=== PATIENT | female | born 1935 | race Caucasian/White ===

== ENCOUNTER 2024-08-28 14:38 | Outpatient (CLI) | payer MEDICARE, BC, SELFPAY ==
--- NOTE | ~2024-08-28 | CT_ITS ---
CT brain wo con Ordering provider: Ericka Crocker NP History: 89 years Female with . R41.3 - Other amnesia . Comparison: None. Technique: CT of the head without contrast. Radiation reduction technique utilized.The dose-length product was 681 mGy-cm. FINDINGS: BRAIN PARENCHYMA AND CSF SPACES: Mild leukoaraiosis and diffuse cortical atrophy. Mild atheromatous d isease. No midline shift, mass effect or hemorrhage. The brain parenchyma and CSF spaces are otherwi se normal. Empty sella turcica. VISUALIZED PARANASAL SINUSES: Well aerated. MASTOIDS: Well aerated. BONES: The bones appear intact. SOFT TISSUES: Visualized nasopharynx is normal. Superficial soft tissues are normal. IMPRESSION: No acute intracranial findings. Reviewed, dictated and finalized at location A. RNATIONAL MARKETING MANAGER
== END 2024-08-28 14:39 | disposition home or self-care (01) ==
PROVIDERS: PCP Nurse Practitioner Family; Visit Provider Nurse Practitioner Family
DX: R41.3 Other amnesia (principal)
CPT/HCPCS: 70450

== ENCOUNTER 2025-03-26 08:38 | Outpatient (CLI) | payer MEDICARE, BC, SELFPAY ==
--- NOTE | ~2025-03-26 | US_ITS ---
EXAMINATION: US carotid duplex BI DATE: 03/26/2025 10:18 CDT INDICATION: Other specified symptoms and signs involving the circulatory for a cyst TECHNIQUE: Grayscale, color Doppler, and pulsed Doppler images of the cervical carotid arteries were obtained. The degree of vessel stenosis is placed in one of the following categories: normal, <50%, 50-69%, >=7 0% but less than near-occlusion, near-occlusion, or total occlusion. Note that percent stenosis relative to normal distal artery lumen diameter is indirectly measured fro m velocity measurements as described originally by Torsten, et al. Radiology 2003; 229:340-346 and upda stanislaw by Mason Lopez et al STROKE 2012;43(3);915-921. COMPARISON: None. FINDINGS: There is mild atherosclerosis of both carotid arteries. Peak systolic velocity (in cm/s) is detailed below RIGHT: Right common carotid artery (CCA): 57 cm/s. Right internal carotid artery (ICA) PSV: 88 cm/s. Right ICA end-diastolic velocity (EDV): 17 cm/s. Right ICA/CCA PSV ratio is 1.5. Right external carotid artery (ECA): 99cm/s. There is antegrade flow in the right vertebral artery LEFT: Left common carotid artery (CCA): 85 cm/s. Left internal carotid artery (ICA) PSV: 106 cm/s. Left ICA end-diastolic velocity (EDV): 22 cm/s. Left ICA/CCA PSV ratio is 1.3. Left external carotid artery (ECA): 106cm/s. There is antegrade flow in the left vertebral artery. IMPRESSION: 1. Less than 50% stenosis in the right internal carotid artery. 2. Less than 50% stenosis in the left internal carotid artery. Reviewed, dictated and finalized at location A.
--- NOTE | ~2025-03-26 | MR_ITS ---
EXAMINATION: MR brain/brain stem wo con DATE: 03/26/2025 09:23 INDICATION: Personal history of other (healed) physical injury. Alzheimer's dementia and amnesia. TECHNIQUE: Magnetic resonance imaging (MRI) of the brain and brainstem was performed without intraven ous contrast. Sequences included sagittal and axial T1-weighted SE, axial diffusion-weighted FS SE, a xial 3D SWAN, axial T2-weighted FLAIR, and axial T2-weighted FSE. Apparent diffusion coefficient (ADC ) maps were created. COMPARISON: Head CT dated 08/28/2024 FINDINGS: There are no areas of restricted diffusion to suggest acute infarction. No intracranial hemorrhage or abnormal intracranial mass lesion. There are scattered areas of nonspecific increased T2-weighted si gnal intensity in the cerebral white matter, predominantly involving the deep and periventricular whi te matter. There are no intraparenchymal signal abnormalities seen on the other pulse sequences. Ther e is a empty sella with flattening of the pituitary with concave cephalad margin images measures 2 mm in maximal craniocaudal thickness occupying <1/4 of the inferior sella. Symmetric prominence of th e sulci and ventricles consistent with mild to moderate age-appropriate diffuse cerebral volume loss. There are no abnormal extra-axial fluid collections. Flow voids are seen in the cerebral arteries on the T2-weighted sequences consistent with their expected patency. Mild mucosal thickening in the audie ateral ethmoid sinuses. Changes of bilateral intraocular lens replacement. Visualized orbits and soft tissues are unremarkable. IMPRESSION: 1. No acute intracranial process. 2. Empty sellawith concave cephalad margin of the pituitary which is flattened along the floor of t he sella which can be seen in the setting of increased intracranial pressures. 3. Age-related changes including mild to moderate diffuse volume loss and mild periventricular, scatt ered white matter T2 hyperintensity consistent with chronic small vessel ischemic disease. Reviewed, dictated and finalized at location A. IMPRESSION: 1. No acute intracranial process. 2. Empty sellawith concave cephalad margin of the pituitary which is flattene d along the floor of the sella which can be seen in the setting of increased in tracranial pressures. 3. Age-related changes including mild to moderate diffuse volume loss and mild periventricular, scattered white matter T2 hyperintensity consistent with chron ic small vessel ischemic disease.
--- OUTSIDE RECORDS SUMMARY | 2025-03-26 08:43 | XMS_ITS | Continuity of Care Document ---
Author Organization [facility] Address [address] [place] [address] Phone Care Team Providers Care Customs Inspector Name Role Phone Gloria Braga Unavailable Unavailable Allergies, Adverse Reactions, Alerts Substance Reaction Status Criticality red dye Active No Information Medications Medication Instructions Dosage Effective Dates (start - stop) Status Comments Toprol XL 50 mg tablet,extended release take 1 tablet by oral route every day 50 MG - Active Procedures Procedure Date Spine Xray Lumbosacral Min Of 4 Views [place] Office/outpatient visit,[facility] Spine Xray Lumbosacral Min Of 4 Views [facility] Advance Directives Directive Yes / No Effective Date File Name No Information Encounters Encounter Description Practice Location Reason(s) For Visit Diagnoses Date Provider Providers Copied on Encounter Office/outpa tient visit,[facility], [address] [place] [address], [id number], tel:[phone] [facility] lumbar spine (chief complaint) Low back painSpondylolisth esis of lumbar regionClosed fracture of fourth lumbar vertebra, unspecified fracture morphology, initial encounter 1 Ritchie Castro. [address] [place] [address], [id number] , . tel:[phone] Referring Provider: Gloria Lucia, [address] [place] [address], [id number] . tel:[phone] [facility], [address] [place] [address], [id number], tel:[phone] [facility] No Information Ritchie Castro. [address], [place], [id number] , . tel:[phone] Referring Provider: Juaquin Lucia, [address] [place], [address] . tel:[phone] Family History Family Member Type Diagnosis Age At Onset No Information Payers Payer name Insurance type Covered democrat ID Authoriza tigokul(s) [place] MB [id number] BCBS (Federal) CI [id number] Social History Type Description Quantity Date Captured Comments Alcohol Use Details Unknown Caffeine Use Details Unknown Tobacco Use Status Current non-smoker Smoking Status Never smoker Non-Smoking Tobacco Use Details : No Details Available : No Details Available Sex Female Vital Signs Date / Time: Height Weight BMI Pulse Rate Blood Pressure Temperature Respiratory Rate Body Surface Area Head Circumference Head Circ. Percentile Wt./Jeremy. Percentile BMI percentile Pulse Ox Inhaled Ox 2:26 PM 64.00 in 48.081 kg (106.00 lbs) 18.1 9 kg/m eter (2) 97.10 F 1.47 meter(2) Chief Complaint And Reason For Visit From encounter dated '11/01/2020 14:00'. lumbar spine (chief complaint). Description: Ms Casas is a 85 year old female who complains of lumbar spine. She presents with pain. She states that the symptoms have been chronic non-traumatic. The symptoms occur constantly. The problem is worse. Currently the patient states that the symptoms are moderate- severe. The pain is described as aching, discomforting and throbbing. The patient is experiencing pain in the following location: lower back. The symptoms are aggravated by walking, dailyactivities, extension and flexion. Lynsey states that the symptoms are relieved by rest and sitting. Reason For Referral Reason For Referral No Information Plan Of Treatment Date Type Action Status Goal Tobacco cessation counseling completed Future Order: Radiology Order Sp ine Xray Lumbosacral Min Of 4 Views ([id number]), Ordered on: Ordered History Of Present Illness Encounter Date Complaint History Of Prese nt Illness lumbar spine Ms Casas is a 85 year old female who complains of lumbar spine. She presents with pain. She states that the symptoms have been chronic non-traumatic. The symptoms occur constantly. The problem is worse. Currently the patient states that the symptoms are moderate-severe. The pain is described as aching, discomforting and throbbing. The patient is experiencing pain in the following location: lower back. The symptoms are aggravated by walking, daily activities, extension and flexion. Lynsey states that the symptoms are relieved by rest and sitting. Functional Status Date Functional Assessmen t No Information Instructions Date Instruction Additional Infor mation No Information Assessments Type Assessment Date assessment Low back pain assessment Spondylolisthesis of lumbar lennox on assessment Closed fracture of f ourth lumbar vertebra, unspecified fracture morphology, initial encounter Mental Status Date Cognitive Assessment Orientation - Elmer ed to time, place, person, situation.Normal Orientation Patient Care Teams Name Effective Dates (start - stop) Status Members No Information
== END 2025-03-26 08:39 | disposition home or self-care (01) ==
PROVIDERS: PCP Nurse Practitioner Family; Visit Provider Psychiatry & Neurology Neurology
DX: R09.89 Other specified symptoms and signs involving the circulatory and respiratory systems (principal); R41.3 Other amnesia; E78.5 Hyperlipidemia, unspecified; Z87.828 Personal history of other (healed) physical injury and trauma; I65.23 Occlusion and stenosis of bilateral carotid arteries
CPT/HCPCS: 70551; 93880